=== PATIENT | male | born 1950 | race Asian ===

== ENCOUNTER 2017-02-01 15:51 | Emergency (ER) | payer MEDICARE, OTHER ==
--- NOTE | 2017-02-01 16:16 | ED Physician Documentation ---
PD HPI SKIN - Stated complaint Stated Complaint: SOA/SWEATING - Chief complaint Chief Complaint: Resp - History obtained from History obtained from: Patient - History of Present Illness Timing - onset: How many hours ago (1-2) Timing - duration: Hours (1-2) Timing - details: Gradual onset (he was having pain in his foot c/w prior gout starting today, and took a pain pill for it (one that he has had in the past, but not taken recently). Within half hour or so, he developed diffuse itching, hives, lightheadedness, and feeling of dyspnea.) Quality / character: Itchy, Swelling Associated symptoms: Joint pain (foot today). No: Fever, Myalgias, N/V/D Contributing factors: Exposed to medication Similar symptoms before: Has not had sx before Recently seen: Not recently seen Review of Systems Constitutional: denies: Fever, Chills Nose: denies: Rhinorrhea / runny nose, Congestion Throat: denies: Sore throat Cardiac: reports: Chest pain / pressure. denies: Palpitations, Pedal edema, Calf pain Respiratory: reports: Dyspnea (just with reaction today). denies: Cough, Wheezing GI: reports: Nausea. denies: Abdominal Pain, Vomiting, Diarrhea Skin: reports: Rash. denies: Lesions Musculoskeletal: denies: Extremity pain, Extremity swelling Neurologic: reports: Generalized weakness, Near syncope. denies: Focal weakness , Numbness, Altered mental status, Headache Endocrine: denies: Weight loss Immunocompromised: denies: Immunocompromised PD PAST MEDICAL HISTORY - Past Medical History Cardiovascular: Hypertension Musculoskeletal: Gout - Present Medications Home Medications: Ambulatory Orders Medication Instructions Recorded Confirmed Allopurinol 300 02/01/17 Dexamethasone [Decadron] 4 mg PO BIDWM #6 tablet 02/01/17 diphenhydrAMINE [Benadryl] 25 mg PO Q4-6H PRN #30 capsule 02/01/17 - Allergies Allergies/Adverse Reactions: Allergies Allergy/AdvReac Type Severity Reaction Status Date / Time No Known Drug Allergies Allergy Verified 02/01/17 16:12 - Living Situation Living Situation: reports: With spouse/s.o. Living Arrangement: reports: At home - Family History Family history: reports: Non contributory PD ED PE NORMAL - Vitals Vital signs reviewed: Yes - General General: Alert and oriented X 3, Well developed/nourished, Other (diffuse hives with itching. Some edema of the uvula. Normal voice. Unlabored breathing but complains of pressure/tightness in the chest. BP is low. ) - HEENT HEENT: Moist mucous membranes, Dentition benign, Other (some uvular edema. No swelling of the tongue. ) - Neck Neck: Supple, no meningeal sign, No adenopathy - Cardiac Cardiac: RRR, No murmur - Respiratory Respiratory: Clear bilaterally - Abdomen Abdomen: Soft, Non tender - Back Back: No CVA TTP - Derm Derm: Other (diffuse hives/rash that is itchy. ). No: Normal color (diffuse redness. ) - Extremities Extremities: No tenderness to palpate, No edema, No calf tenderness / cord - Neuro Neuro: Alert and oriented X 3, fork assembler 2-12 intact, No motor deficit, No sensory deficit, Normal speech Results - Vitals Vitals: Vital Signs - 24 hr 02/01/17 02/01/17 02/01/17 16:06 17:01 17:48 Temperature 36.1 C L Heart Rate 87 77 81 Respiratory 20 21 Rate Blood Pressure 92/57 L 125/74 O2 Saturation 96 98 02/01/17 18:39 Temperature 36.3 C L Heart Rate 70 Respiratory 16 Rate Blood Pressure 117/68 O2 Saturation 100 Oxygen O2 Source Room air - Labs Labs: Laboratory Tests 02/01/17 17:00 Troponin I < 0.04 PD MEDICAL DECISION MAKING - ED course Complexity details: re-evaluated patient (Improved symptoms. BP better. Rash is lessening. Given the anaphylactic symptoms needing epi, he should be treated still and is at risk of recurrent symptoms as meds wear off. Typical course would be 6-12 hour treatment/observation period. ), considered differential ( seems anaphylactic reaction, presume to the Indomethacin. No other obvious trigger and timing is coincident. ), d/w technical sales consultant (Dr. Turcios, Hospitalist) Departure - Departure Disposition: 01 Home, Self Care Clinical Impression: Acute anaphylaxis Qualifiers: Encounter type: initial encounter Qualified Code(s): T78.2XXA - Anaphylactic shock, unspecified, initial encounter Condition: Fair Record reviewed to determine appropriate education?: Yes Prescriptions: diphenhydrAMINE [Benadryl] 25 mg PO Q4-6H PRN #30 capsule PRN Reason: itching or rash Dexamethasone [Decadron] 4 mg PO BIDWM #6 tablet Comments: You had a reaction to a medication called indomethacin that you were taking for gout. Please do not take this medication any more or any medications in the same class. Indomethacin is from a class of medications called NSAIDs or Non steroidal anti-inflammatory. Medications in this class include ibuprofen and naproxin. I have prescribed you a steroid medication please take that for the next 3 days this will ensure that your symptoms do not return and it will help with your gout. I have also prescribed you benadryl which you should take if the rash returns or if your have any further itching. Discharge Date/Time: 02/01/17 18:39
[2017-02-01] MEDS ORDERED: DEXAMETHASONE 10 MG/ML VIAL IVP STA (16:32)
[2017-02-01] MEDS ORDERED: CETIRIZINE 10 MG TABLET PO STA (16:32)
[2017-02-01] MEDS ORDERED: SODIUM CHLORIDE 0.9% 1,000 ML IV ONE ×3 (16:32→17:26)
[2017-02-01] MEDS ORDERED: diphenhydrAMINE INJ 50 MG/ML VIAL IVP STA ×2 (16:32→17:26)
[2017-02-01] MEDS ORDERED: EPINEPHrine 1 MG/ML AMP IM STA (16:33)
[2017-02-01] MEDS ORDERED: EPINEPHrine 1 MG/ML AMP ONE (16:37)
[2017-02-01] MEDS ORDERED: CETIRIZINE 10 MG TABLET ONE (16:38)
[2017-02-01] MEDS ORDERED: diphenhydrAMINE INJ 50 MG/ML VIAL ONE ×2 (16:38→17:27)
[2017-02-01] MEDS ORDERED: DEXAMETHASONE 10 MG/ML VIAL ONE (16:38)
[2017-02-01] MEDS ORDERED: ALBUTEROL NEB 2.5 MG/3 ML INH STA (16:43)
[2017-02-01] MEDS ORDERED: ALBUTEROL NEB 2.5 MG/3 ML INH ONE (16:50)
--- NOTE | 2017-02-01 18:16 | Discharge Plan ---
Discharge Plan Disposition: 01 Home, Self Care Condition: Fair Prescriptions: diphenhydrAMINE [Benadryl] 25 mg PO Q4-6H PRN #30 capsule PRN Reason: itching or rash Dexamethasone [Decadron] 4 mg PO BIDWM #6 tablet Diet: Regular Activity Restrictions: Activity as Tolerated Shower Restrictions: No Driving Restrictions: No Weight Bearing: Full Weight Additional Instructions or Follow Up instructions: You had a reaction to a medication called indomethacin that you were taking for gout. Please do not take this medication any more or any medications in the same class. Indomethacin is from a class of medications called NSAIDs or Non steroidal anti-inflammatory. Medications in this class include ibuprofen and naproxin. I have prescribed you a steroid medication please take that for the next 3 days this will ensure that your symptoms do not return and it will help with your gout. I have also prescribed you benadryl which you should take if the rash returns or if your have any further itching. No Smoking: If you smoke, Please STOP! Call for help.
--- NOTE | 2017-02-01 18:34 | CONSULTATION NOTE ---
Referring Provider Name of Referring Provider:: Levi Reyes MD Consult Date: 02/01/17 Chief Complaint - Chief Complaint Chief Complaint: Itching and redness over entire body History of Present Illness - Admitted From Admitted From:: Emergency Department - History Obtained From Records Reviewed: Yes History obtained from: Patient and his Exam Limitations: None - History of Present Illness HPI Comment/Other: Patient is a 66-year-old [place] gentleman with a past medical history significant for gout who presented to the emergency department with a chief complaint of itching and redness all over his body. The patient states that he was in the hairline up on his way to [facility]. He states that he began having pain in his right big toe and felt as though his gout was coming on. He states that he took indomethacin which is a medication that he typically takes for gout. He does admit that the medication was probably about 2 years old. He states after he took the medication within minutes he began having itching all over his body and felt washed. She also states she began having blurry vision and was diaphoretic he states he was driving the car but could not drive the car sleep had his take the car. The patient states he felt dizzy. He denies any swelling of his tongue but does state that he was having some chest pressure when asked if he was having trouble breathing he states no. The patient 's brought him into the emergency department. On presentation to the emergency department the patient was afebrile he was not tachycardic but was slightly hypotensive with a blood pressure of 92/57 and was mildly tachypneic at 21. The patient did not have any obvious respiratory distress and he was saturating well on room air. When examined by the emergency room physician the patient was found to have hives over his torso. He was also flushed it was quite itchy. The patient was given IV fluids, steroids, Benadryl and epi. The patient then slowly had improvement to his itching and rash. The patient's blood pressure improved. Initially the emergency room physician was concerned that there may have been some swelling of the patient's uvula. However when the patient was reexamined the uvula appeared normal. Patient had no shortness of air. The patient's symptoms are completely resolved and the patient wanted to go back home. Patient was discharged from the emergency department. Review of Systems - Other Findings Other Findings: A comprehensive review of systems was performed the pertinent positives and negatives are stated above in the HPI and the remainder of the review of systems is negative. History - Past Medical History Musculoskeletal: reports: Gout Other Past Medical History: 1. Gout - Family & Social History Family History: Mother: Alive and Well, Father: Alive and Well, Brother: Alive and Well Family History Comment/Other: No family history of gout, diabetes, stroke or heart attack. Living arrangement: At home Living Situation: With spouse/s.o. Social History Notes: Patient lives in [place] with his and kids. He and his are originally from [facility]. The [place]. Patient does not smoke, rarely drinks and does not use any drugs. - Substance History Use: Uses substance without health or social issues: NONE Abuse: Recurrent use of substance despite neg consequences: NONE Dependence: Experiences withdrawal or developed tolerances: NONE - POLST Patient has POLST: No POLST Status: Full Code Meds/Allgy - Home Medications Home Medications: Ambulatory Orders Medication Instructions Recorded Confirmed Allopurinol 300 02/01/17 Dexamethasone [Decadron] 4 mg PO BIDWM #6 tablet 02/01/17 diphenhydrAMINE [Benadryl] 25 mg PO Q4-6H PRN #30 capsule 02/01/17 - Allergies Allergies/Adverse Reactions: Allergies Allergy/AdvReac Type Severity Reaction Status Date / Time No Known Drug Allergies Allergy Verified 02/01/17 16:12 Exam - Vital Signs Reviewed Vital Signs: Yes Vital Signs: Vital Signs x48h Temp Pulse Resp BP Pulse Ox 02/01/17 17:48 81 125/74 98 02/01/17 17:01 77 21 02/01/17 16:06 36.1 C L 87 20 92/57 L 96 - Physical Exam General Appearance: positive: No acute distress, Alert Eyes Bilateral: positive: Normal inspection, PERRL, EOMI, No lid inflammation, Conjunctivae nml, No scleral icterus ENT: positive: ENT inspection nml, Pharynx nml, No signs of dehydration, Other ( No uvula swelling). negative: Purulent nasal drainage, Pharyngeal erythema, Oral lesions Neck: positive: Nml inspection, Thyroid nml, No JVD, Trachea midline. negative : Thyromegaly, Lymphadenopathy (R), Lymphadenopathy (L), Carotid bruit, Tracheal deviation Respiratory: positive: Chest non-tender, No respiratory distress, Breath sounds nml. negative: Wheezes, Rales, Rhonchi Cardiovascular: positive: Regular rate & rhythm, No murmur, No gallop Peripheral Pulses: positive: 2+ Abdomen: positive: Non-tender, No organomegaly, Nml bowel sounds, No distention. negative: Guarding, Rebound, Hepatomegaly Back: positive: Nml inspection. negative: CVA tenderness (R), CVA tenderness (L ) Skin: positive: Color nml, No rash, Other (Patient says he had erythema of his entire torso but it has completely resolved) Extremities: positive: Non-tender, Full ROM, Nml appearance, No pedal edema, Other (Right big toe mild erythema and swelling) Neurologic/Psychiatric: positive: Oriented x3, CN's nml (2-12), Motor nml, Sensation nml, Mood/affect nml Conclusion/Plan - Diagnosis Diagnosis: 1. Medication reaction. 2. Gout - Plan Plan: Patient had a reaction to indomethacin with rash and itching over the entire body. Initially there was some concern for anaphylaxis but after patient was treated with benadryl, epi, steroids and IVFs his rash and symptoms completely resolved. There was some concern for swelling of his uvula but when re-examined it appeared normal. Patient initially was mildly hypotensive but vital were stable at discharge. Initially I was called to bring the patient in for observation but after examination of the patient and speaking with the patient it appeared he was safe for discharge home. Patient was given a script for dexamethasone which should take care of his gout and also help with any residual medication reaction. He was given benadryl incase the rash or itching return. He will follow up with his PCP in 3 days. Patient instructed not to take indomethacin again and avoid NSAIDS. - Lab Results Lab results reviewed: Yes - Diagnostic Imaging Results Diagnostic Imaging Results: positive: Final report reviewed
[2017-02-01 18:41] VITALS: BP 117/68
== END 2017-02-01 18:39 | disposition home or self-care (01) ==
LOC: ED 15:51
DX: T88.6XXA Anaphylactic reaction due to adverse effect of correct drug or medicament properly administered, initial encounter (principal); T39.395A Adverse effect of other nonsteroidal anti-inflammatory drugs [NSAID], initial encounter; M10.9 Gout, unspecified; I10 Essential (primary) hypertension
CPT/HCPCS: 36415; 84484; 93005; 94640; 96361; 96372; 96374; 96375; 99284; A9270; J7613; 80053; 83690; 85025